=== PATIENT | male | born 1945 | race Caucasian/White ===

== ENCOUNTER 2019-06-10 10:28 | Day surgery (SDC) | payer MEDICARE ==
[~2019-06-10] VITALS: Ht 167.6 cm; Wt 67.2 kg
[~2019-06-10 10:28] MED LIST: ALLEGRA-D 24HOU1 T24 PO; ASPIR-LOW81 MG PO; ASPIRIN E.C. 8181 MG PO; CENTRUM SILVER1 TA1 PO; FOLIC ACID; GLUCOSAMINE; IRON PO; IRON250 MG PO; NAPROSYN250 MG PO; NORCO 325 MG-7.1 TAB PO; ROBAXIN 75750 MG/TAB PO; SENNA LAX8.6 MG PO; SILDENAFIL; SIMVASTATIN10 MG PO
[2019-06-10 11:16] VITALS: BP 110/70; PULSE 46; TEMP 97.5
[2019-06-10] MEDS ORDERED: VIAGRA100 M1 PO (11:25)
[2019-06-10] MEDS ORDERED: ZOCOR 10MG10 MG PO (11:27)
--- NOTE | 2019-06-10 11:29 | NUR ---
TO RM AT 74YO MALE TO RM 7 AT 1037- CALL LIGHT IN REACH
[2019-06-10] MEDS ORDERED: NORCO 325 MG-51 TAB PO (14:31)
[2019-06-10 15:10] VITALS: BP 118/58; PULSE 43; TEMP 97.3
--- NOTE | 2019-06-10 15:10 | NUR ---
TO RM 7 PER CART FROM PACU. ALERT ORIENTED X3, TALKING TO STAFF AND HIS . [employer] DRY INTACT. NO DRAINAGE NOTED. C/O "MILD PAIN" AND DENIES NEED FOR PAIN MEDICATION AT THIS TIME. RECEIVED WATER AND TOLERATING WELL.
[2019-06-10 15:25] VITALS: BP 127/64; PULSE 40
--- NOTE | 2019-06-10 15:25 | NUR ---
SITTING UP IN BED RECEIVED COFFEE AND 2ND CUP OF WATER.
[2019-06-10 15:45] VITALS: BP 122/71; PULSE 48
--- NOTE | 2019-06-10 15:45 | NUR ---
RECEIVED FREDRICK. PUCARLITOSING
[2019-06-10 16:00] VITALS: BP 125/63; PULSE 41
--- NOTE | 2019-06-10 16:00 | NUR ---
ATE 100% AND FINISHED HIS COFFEE.
--- NOTE | 2019-06-10 16:15 | NUR ---
RECEIVED 2ND CUP OF COFFEE.
[2019-06-10 16:30] VITALS: BP 116/59; PULSE 45
--- NOTE | 2019-06-10 16:30 | NUR ---
AMBULATED TO BATHROOM. VOIDED AND AMBULATED BACK TO BED. CONTINUES TO DENY NEED FOR PAIN MED WHEN OFFERED.
--- NOTE | 2019-06-10 16:30 | NUR ---
PATIENT RESTING AND STATED PAIN IS OK AND DENIES NEED FOR PAIN MED
--- NOTE | 2019-06-10 16:50 | NUR ---
RECEIVED DISCHARGE INSTRUCTIONS AND VERBALIZED UNDERSTANDING. DISCONTINUED IV AND INT- CATHETER INTACT ASSISTING PATIENT DRESSED
--- NOTE | 2019-06-10 17:20 | NUR ---
DISCHARGED PER WC BY NURSING STAFF TO PRIVATE CAR IN CARE OF - SANCHEZ.
== END 2019-06-10 17:26 | disposition home or self-care (01) ==
LOC: SDCO 10:28
DX: K40.20 Bilateral inguinal hernia, without obstruction or gangrene, not specified as recurrent (principal); Z85.46 Personal history of malignant neoplasm of prostate; Z90.79 Acquired absence of other genital organ(s); Z96.0 Presence of urogenital implants; E78.00 Pure hypercholesterolemia, unspecified; Z79.899 Other long term (current) drug therapy; Z85.828 Personal history of other malignant neoplasm of skin
CPT/HCPCS: C1781; J0690; J1100; J1885; J2405; J2704; J2710; J3010; J7120

== ENCOUNTER 2021-04-27 15:00 | Outpatient (RCR) | payer MEDICARE ==
[~2021-04-27 15:00] MED LIST changes: +NORCO 325 MG-51 TAB PO; +VIAGRA100 M1 PO; +ZOCOR 10MG10 MG PO
== END 2021-04-30 | disposition home or self-care (01) ==
LOC: WSST
DX: R13.10 Dysphagia, unspecified (principal)

== ENCOUNTER 2021-05-13 13:30 | Outpatient (RCR) | payer MEDICARE | END 2021-05-31 | disposition home or self-care (01) | LOC: WSST | DX: R13.10 Dysphagia, unspecified (principal) ==